=== PATIENT | female | born 1990 | race Two or more races ===

== ENCOUNTER 2020-07-12 03:00 | Inpatient (IN) | payer MEDICAID ==
[~2020-07-12] VITALS: Ht 165.1 cm; Wt 83.9 kg
[2020-07-12] VITALS (19 sets, daily range): BP systolic 119–145; BP diastolic 72–97
[2020-07-12] MEDS ORDERED: TERBUTALINE SULFATE 1 MG/ML 1ML VIAL SC ONE (03:15)
[2020-07-12] MEDS ORDERED: TERBUTALINE SULFATE 1 MG/ML 1ML VIAL SC SCH (03:15)
[2020-07-12] MEDS ORDERED: LACTATED RINGER'S 1,000 ML IV ONE (03:30)
[2020-07-12] MEDS ORDERED: ceFAZolin 1GM/50ML 50 ML IV ONE (04:15)
[2020-07-12 04:41] LABS: Basophils # (auto) 0 10 ^3/uL (0-0.2); Eosinophils # (auto) 0 10 ^3/uL (0-0.8); Hemoglobin 9.3 g/dL (12.2-16.2); Monocytes # (auto) 0.7 10 ^3/uL (0-1.3)
[2020-07-12] MEDS ORDERED: TETRACAINE 1% INJ 2 ML VIAL IJ ONE (04:41)
[2020-07-12 04:43] LABS: Basophils % (auto) 0.2 % (0.0-2.0); Eosinophils % (auto) 0.1 % (0.0-7.0); Hematocrit 27.8 % (36.0-46.0); Lymphocytes # (auto) 1.3 10 ^3/uL (0.4-5.4); Lymphocytes % (auto) 8.8 % (10.0-50.0); Mean Corpuscular Hemoglobin 26.7 pg (28.0-32.0); Mean Corpuscular Hgb Conc. 33.5 g/dL (32.0-36.0); Mean Corpuscular Volume 79.5 fL (80.0-100.0); Monocytes % (auto) 4.7 % (0.0-12.0); Neutrophils # (auto) 12.3 10 ^3/uL (1.6-8.6); Neutrophils % (auto) 86.2 % (37.0-80.0); Platelet Count (auto) 226 10^3/uL (140-450); Red Cell Distribution Width 15.5 % (11.8-14.3); White Blood Cell 14.3 10^3/uL (4.4-10.8)
[2020-07-12 04:50] LABS: Urine Bacteria FEW /hpf (None Seen); Urine Blood 1+ /uL (Negative); Urine Mucus FEW (None Seen); Urine Specific Gravity 1.019 (1.001-1.035); Urine WBC 355 /hpf (0 - 5); Urine WBC Clumps PRESENT /hpf (None Seen)
[2020-07-12 04:58] LABS: INR 0.96 (0.9-1.15); Partial Thromboplastin Time 27.1 sec (23.0-31.2)
[2020-07-12 04:59] LABS: Albumin 1.9 g/dL (3.4-5.0); Calcium 8.6 mg/dL (8.5-10.1); Potassium 3.5 mmol/L (3.5-5.1); Uric Acid 4.8 mg/dL (2.6-6.0)
[2020-07-12 05:02] LABS: Alcohol, Urine < 3.0 mg/dL (0-10); Amphetamine Screen, Urine NEGATIVE (NEGATIVE); Barbiturate Scree,Urine NEGATIVE (NEGATIVE); Benzodiazephine Screen, Urine NEGATIVE (NEGATIVE); Cannabinoid Screen, Urine NEGATIVE (NEGATIVE); Cocaine Screen, Urine NEGATIVE (NEGATIVE); Opiate Scree,Urine NEGATIVE (NEGATIVE); Phencyclidine Screen, Urine NEGATIVE (NEGATIVE)
[2020-07-12 05:02] LABS: BUN/Creatinine Ratio 10.6; Bilirubin, Total 0.4 mg/dL (0.2-1.0); Total Protein 6.5 g/dL (6.4-8.2)
[2020-07-12] MEDS ORDERED: LABETALOL HCL 5 MG/ML 4ML SYRINGE IV PRN (06:45)
[2020-07-12] MEDS ORDERED: HYDROmorphone HCL 2 MG/ML VL IV PRN (06:45)
[2020-07-12] MEDS ORDERED: NALOXONE HCL 0.4 MG/ML VIAL IV PRN (06:45)
[2020-07-12] MEDS ORDERED: ONDANSETRON HCL 4 MG/2 ML VIAL IV PRN ×2 (06:45)
[2020-07-12] MEDS ORDERED: GUM (CHEWING) 1 GUM CHEW CHEW ONE (06:45)
[2020-07-12] MEDS ORDERED: DexAMETHasone SOD PHOS 10MG/1ML VIAL INJ IV PRN (06:45)
[2020-07-12] MEDS ORDERED: diphenhdrAMINE HCL 50 MG/1 ML VL IV PRN (06:45)
[2020-07-12] MEDS ORDERED: KETOROLAC TROMETH 30 MG/ML 1ML VIAL IV PRN (06:45)
[2020-07-12] MEDS ORDERED: NALBUPHINE HCL 10 MG/1ml INJECTION SUBCUT ONE (06:45)
[2020-07-12] MEDS ORDERED: ePHEDrine SULFATE 50 MG/ML AMP IV PRN (06:45)
[2020-07-12] MEDS: LACTATED RINGER'S 1,000 ML IV SCH ×2 (07:34→17:29)
[2020-07-12] MEDS ORDERED: LACTATED RINGER'S 1,000 ML IV SCH (08:00)
[2020-07-12] MEDS: KETOROLAC TROMETH 30 MG/ML 1ML VIAL IV PRN ×3 (08:16→21:39)
[2020-07-12] MEDS: HYDROmorphone HCL 2 MG/ML VL IV PRN ×2 (11:11→18:54)
[2020-07-12] MEDS ORDERED: ACETAMINOPHEN IV 1000 MG/100ML (10MG/ML) IV ONE (13:30)
[2020-07-12] MEDS: ceFAZolin 1GM/50ML 50 ML IV SCH ×2 (13:57→21:39)
[2020-07-12] MEDS ORDERED: guaiFENesin-DM 100/10mg/5ml SYR PO PRN (16:45)
[2020-07-13] VITALS (11 sets, daily range): BP systolic 118–146; BP diastolic 72–100
[2020-07-13] MEDS: HYDROmorphone HCL 2 MG/ML VL IV PRN (02:05)
[2020-07-13] MEDS: LACTATED RINGER'S 1,000 ML IV SCH (03:16)
[2020-07-13] MEDS: KETOROLAC TROMETH 30 MG/ML 1ML VIAL IV PRN (04:54)
[2020-07-13 06:06] LABS: RPR Non Reactive (Non Reactive)
[2020-07-13 06:49] LABS: Basophils # (auto) 0 10 ^3/uL (0-0.2); Basophils % (auto) 0.1 % (0.0-2.0); Eosinophils # (auto) 0 10 ^3/uL (0-0.8); Eosinophils % (auto) 0.1 % (0.0-7.0); Hemoglobin 9.5 g/dL (12.2-16.2); Lymphocytes # (auto) 1.4 10 ^3/uL (0.4-5.4); Neutrophils # (auto) 11.9 10 ^3/uL (1.6-8.6); Red Cell Distribution Width 16.1 % (11.8-14.3)
[2020-07-13 06:51] LABS: Hematocrit 28.6 % (36.0-46.0); Lymphocytes % (auto) 9.9 % (10.0-50.0); Mean Corpuscular Hemoglobin 26.4 pg (28.0-32.0); Mean Corpuscular Hgb Conc. 33.1 g/dL (32.0-36.0); Mean Corpuscular Volume 79.6 fL (80.0-100.0); Monocytes # (auto) 0.8 10 ^3/uL (0-1.3); Monocytes % (auto) 5.5 % (0.0-12.0); Neutrophils % (auto) 84.4 % (37.0-80.0); Platelet Count (auto) 258 10^3/uL (140-450); Red Blood Cells 3.59 10^6/uL (4.0-5.20); White Blood Cell 14.2 10^3/uL (4.4-10.8)
[2020-07-13 08:06] LABS: Rubella Antibodies, IgG 2.28 index (Immune >0.99)
[2020-07-13] MEDS ORDERED: ceFAZolin 1GM/50ML 50 ML IV SCH (08:15)
[2020-07-13] MEDS: METHADONE HCL 10 MG TAB PO SCH (09:22)
[2020-07-13] MEDS: DOCUSATE SOD 100 MG CAP PO SCH ×2 (11:09→22:12)
[2020-07-13] MEDS: IBUPROFEN 800 MG TAB PO PRN (11:10)
[2020-07-14 03:00] VITALS: BP 114/72
[2020-07-14 07:00] VITALS: BP 127/77
[2020-07-14] MEDS: METHADONE HCL 10 MG TAB PO SCH (10:22)
[2020-07-14] MEDS: DOCUSATE SOD 100 MG CAP PO SCH ×2 (10:28→21:56)
[2020-07-14 11:00] VITALS: BP 124/82
[2020-07-14 15:00] VITALS: BP 125/80
[2020-07-14 19:00] VITALS: BP 124/71
[2020-07-14] MEDS: IBUPROFEN 800 MG TAB PO PRN (21:56)
[2020-07-14 23:00] VITALS: BP 124/78
[2020-07-15 03:00] VITALS: BP 124/87
[2020-07-15 06:30] VITALS: BP 124/85
[2020-07-15] MEDS ORDERED: METH10T PO (08:39)
[2020-07-15 09:35] VITALS: BP 125/74
[2020-07-15] MEDS: METHADONE HCL 10 MG TAB PO SCH (09:39)
== END 2020-07-15 10:43 | disposition home or self-care (01) | DRG 540 ==
LOC: LDRP 03:00 → OBSVTOIN 03:50 → LDRP 16:35
PROVIDERS: ADMIT Specialist; ATTEND Specialist
PROC: 10D00Z1 Extraction of Products of Conception, Low, Open Approach (ICD-10-PCS; principal; 2020-07-12 05:29)
DX: O34.211 Maternal care for low transverse scar from previous cesarean delivery (principal); O61.9 Failed induction of labor, unspecified; Z20.822 Contact with and (suspected) exposure to COVID-19; Z3A.38 38 weeks gestation of pregnancy; Z37.0 Single live birth
CPT/HCPCS: 36415; 59025; 59414; 76805; 80053; 80307; 81001; 84550; 85025; 85610; 85730; 86592; 86703; 86762; 86850; 86900; 86901; 86920; 87340; 87426; 94762; 96360; 96361; 96365; 96366; 96374; G0378; J0131; J0690; J1885